=== PATIENT | male | born 1955 | race Caucasian/White ===

== ENCOUNTER → 2019-11-19 10:54 | Outpatient (CLI) | payer MEDICARE, SELFPAY ==
[2019-11-19 09:50] VITALS: BMI 34.9
--- NOTE | 2019-11-19 10:57 | VDLE_ITS ---
Reason For Study: swelling RIGHT LEFT GSV is normal. GSV is normal. CFV is compressible, spontaneous, phasic, CFV is compressible, spontaneous, phasic, competent and demonstrates normal competent, and demonstrates normal augmentation. augmentation. FV is compressible, spontaneous, phasic, FV is compressible, spontaneous, phasic, competent and demonstrates normal competent and demonstrates normal augmentation. augmentation. POP V is compressible, spontaneous, phasic, POP V is compressible, spontaneous, phasic, competent and demonstrates normal competent and demonstrates normal augmentation. augmentation. T/P Trunk is compressible. T/P Trunk is compressible. PTV is compressible. PTV is compressible. RT PerV is compressible. LT PerV is compressible. Procedure Heterogeneous area behind the knee measuring Exam performed in department. 3.37 x 1.5 cm in short. Area appears to be The exam was diagnostic. nonvascular. A preliminary report was called and/or faxed Heterogeneous area in the gastroc muscle. Are to Dr. Whiteside. is too lasrge to measure. Area appears to be nonvascular. Interpretation Summary No evidence for acute deep venous thrombosis bilateral lower extremities with patent and compressible bilateral great saphenous veins. Heterogenous area 3.37 x 1.5 cm left popliteal space most consistent with Car's cyst with hemorrhage. Clinical correlation would be indicated. Separate area left gastrocnemius muscle too large to measure nonvascular complex solid/cystic. Clinical correlation appropriate. Ordering Physician: Asha Whitesied Performed By: Cordell Ojeda RVT
[2019-11-19 12:21] LABS: Pathologist Comment May follow
[2019-11-19 13:18] LABS: Synovial Fld Mononuclear WBC % 68.4 %; Synovial Fld Polynuclear WBC % 31.6 %
[2019-11-19 14:18] LABS: Lymph 25 %; Monocyte /Synovial Fluid 33 %; Neutrophil 42 % (0-25)
[2019-11-19 14:28] LABS: AUTO B FLUID DILUENT BKGD CT WBC <0.1 RBC <0.01 (W<.1,R<.01); Appearance /Synovial Fluid Clear (CLEAR); Color / Synovial Fluid Yellow (Pale Yellow); Source- Body Fluid SYNOVIAL
[2019-11-19 14:29] LABS: Body Fluid QC Type(s) BF1Q,BF2Q; RBC /Synovial Fluid 545 /mm3 (0)
[2019-11-20 10:40] LABS: Pathologist Review Reviewed
[2019-11-21 15:51] LABS: GLUCOSE, SYNOVIAL FLUID 83 mg/dL (.)
== END ==
PROVIDERS: Referring Provider Orthopaedic Surgery; Visit Provider Orthopaedic Surgery
DX: M25.462 Effusion, left knee (principal); R60.0 Localized edema
CPT/HCPCS: 82945; 84157; 87070; 87075; 87205; 89050; 89051; 89060; 93970

== ENCOUNTER 2019-12-13 12:30 | Outpatient (RCR) | payer MEDICARE, SELFPAY ==
[2019-11-19 09:50] VITALS: BMI 34.9
--- NOTE | 2019-11-26 10:44 | HP.PTEVAL ---
Patient's Visit Information MINA YOON is a 64 year old M referred to Physical Therapy by Dr. Asha Whiteside, with a diagnosis of LEFT KNEE EFFUSION,LEG SWELLING. Date of Evaluation: 11/26/19 Physical Therapist: Paul Lind, PT, Cert MDT, OCS - Visit Plan Frequency: 2x /Week Duration: 4 Weeks Plan: PT INTERVENTIONS VASO FOR EDEMA CONTROL,GRADED ROM ONLY - Subjective Findings: This 64 y/o male presents to physical therapy with left knee effusion ,leg swelling. Patient had left knee menisectomy athroscopy Aug 2019. Patient had PT which caused more pain progressivelly edema. Patient seen DR Whiteside reviewed and MRI showed insufficiency fracture of left femur,hematoma along with bakers cyst. Patient recommended to use crutches limited WB and PT for edema control. Patient had US to r/o DVT -.Patient has alot edema in leg. 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 Patient has h/o stents in heart x3,NM. Also ,refer to Dr Farnsworth for hematoma . Patient has limitation with all functtional activities ,stairs unable to squat, kneel. Symptoms affects sleeping. VOCATION: retired. SOCAIL: single - Pain Left Lower Extremity Pain Intensity (Out of 10): 9 Pain Intensity Range: 10 Left Knee Pain Intensity (Out of 10): 9 Pain Intensity Range: 10 - Objective POSTURE: mild foward posture. GAIT: ambulates with antalgic gait with limited WB crutches. BALANCE: good- with crutches. PALAPTION: tender CALF ,KNEE ,QUAD. EDEMA:2+ non pitted. MEASUREMENTS: joint line 50.1 cm,mid calf 43 cm ,6 above joint li ne 54 cm with jeans on. AROM: 30-90 degrees supine flexion. MMT: quads/hams /hip 3+/5 - Goals Goal 1:: Independant with ROM as melania. Goal Time Frame: 2-4 Weeks Goal 2:: Patient improve gait with less pain by 50% Goal Time Frame: 2-4 Weeks Goal 3:: Patient to decrease edema by 5cm or > to improve function left leg Goal Time Frame: 2-4 Weeks Goal 4:: Patient improve LFES SCORE by 5 points or > to improve QOL. Goal Time Frame: 2-4 Weeks Goal 5:: Improve ROM left knee by 10 degrees to improve gait. - Rehabilitation Potential Physical Therapy Diagnosis: This patient has multiple complexity issue with patient developing severe edema and pain following knee arthroscopic surgery thus has impairments with edema benifit from VASO. Rehabilitation Potential: Good - Anticipated Interventions Patient/Client Instruction: Educate patient on: Condition, Plan of Care For the Purpose of:: To decrease pain, To increase ROM, To improve muscle performance and motor function, To improve ability to perform ADL's, To increase tolerance to activity/condition/position, To improve ability of physical actions for home/community/work/leisure, To improve health of tissue, To decrease soft tissue restriction, To increase flexibility/ROM, To improve ability to perform tasks related to life management Therapeutic Exercise to Include: Passive ROM, Active ROM For the Purpose of:: To increase ROM TENS: Yes IF ES: Yes Cryotherapy (ice pack, ice massage): Yes Vasopneumatic device: Yes For the Purpose of:: To decrease pain, To decrease swelling/inflammation, To increase ROM, To improve nutrient delivery to tissue, To increase oxygenation perfusion, To improve health of tissue, To decrease soft tissue restriction, To increase flexibility/ROM Thank you for the opportunity to evaluate your patient. For Medicare and Medicare HMO plans, please review the plan of care and approve it. It will need to be FAXED BACK to us at [phone] for Medicare purposes. For Medicare only, by signing this I certify the plan of care. Please let me know if there are questions or concerns regarding this plan of care. Physician Signature: Date:
--- NOTE | 2020-06-11 10:17 | HP.PT.NRP ---
MINA YOON was seen in my office for initial evaluation on 11/26/19. The following Plan of Care was established for this patient: Initial Frequency: 2x /Week Initial Duration: 4 Weeks Patient/Client Instruction: Educate patient on: Condition, Plan of Care For the Purpose of:: To decrease pain, To increase ROM, To improve muscle performance and motor function, To improve ability to perform ADL's, To increase tolerance to activity/condition/position, To improve ability of physical actions for home/community/work/leisure, To improve health of tissue, To decrease soft tissue restriction, To increase flexibility/ROM, To improve ability to perform tasks related to life management Therapeutic Exercise to Include: Passive ROM, Active ROM For the Purpose of:: To increase ROM TENS: Yes IF ES: Yes Cryotherapy (ice pack, ice massage): Yes Vasopneumatic device: Yes For the Purpose of:: To decrease pain, To decrease swelling/inflammation, To increase ROM, To improve nutrient delivery to tissue, To increase oxygenation perfusion, To improve health of tissue, To decrease soft tissue restriction, To increase flexibility/ROM This patient was last seen in our office 12/16/19. Pertinent comments regarding their Physical therapy will appear below: Patient seen for PT for knee pain,swelling thus seen PT for vasopneumatic . Did get approval for home device. But vendor was unable to contact patient. At this point I will be discontinuing this patient from physical therapy. I would be happy to see this patient again in the future if found appropriate by the physician. Thank you! Paul Lind, PT, Cert MDT, OCS
== END 2019-12-13 19:00 | disposition home or self-care (01) ==
LOC: PT 12:30
PROVIDERS: Referring Provider Orthopaedic Surgery; Visit Provider Orthopaedic Surgery
DX: M25.462 Effusion, left knee (principal); M79.89 Other specified soft tissue disorders
CPT/HCPCS: 97016; 97162

== ENCOUNTER → 2020-02-21 13:32 | Outpatient (CLI) | payer MEDICARE, SELFPAY ==
[2019-12-31 10:13] VITALS: BMI 34.9
--- NOTE | 2020-02-21 13:32 | RAD_ITS ---
STUDY: X-RAY - LEFT KNEE REASON FOR EXAM: Male, 64 years old. CHRONIC KNEE PAIN TECHNIQUE: 4 view(s) of the knee. COMPARISON: None. FINDINGS: Findings suggestive of a osteochondritis dissecans of the medial femoral condyle. Normal visualized proximal tibia and fibula. Normal proximal tibiofibular articulation. There is severe degenerative arthrosis of the medial femorotibial compartment with severe joint space narrowing. Chondrocalcinosis of the lateral meniscus. Normal patellofemoral articulation. Moderate size joint effusion. Atherosclerotic calcification of the popliteal artery. RAD/Knee 4 or More Views IMPRESSION: Degenerative arthrosis. 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 Joint effusion. Moderate size joint effusion. Electronically Signed: Aris Mullen, at 14:33 EDT , Service support ,
== END ==
PROVIDERS: Referring Provider Physician Assistant; Visit Provider Physician Assistant
DX: M25.562 Pain in left knee (principal)
CPT/HCPCS: 73564

== ENCOUNTER → 2020-03-13 06:50 | Outpatient (CLI) | payer MEDICARE, SELFPAY ==
[2020-02-24 15:58] VITALS: BMI 34.9
--- NOTE | 2020-03-13 06:51 | CT_ITS ---
STUDY: CT SCAN LEFT LOWER EXTREMITY LEFT REASON FOR EXAM: Male, 64 years old. HILARIO KNEE, KNEE PAIN RADIATION DOSAGE (If Supplied By Facility): CTDIvol = ( 18.76 ) mGy, DLP = ( 1216.75 ) mGycm. Individualized dose optimization techniques were used for this CT.? TECHNIQUE: Multiple axial tomographic images of the left hip joint, knee joint and ankle joint were obtained. Sagittal and coronal reconstruction was obtained as well. COMPARISON: None. FINDINGS: There is a moderate degree of joint space narrowing of the left hip joint with a small acetabular spur. There is evidence of a dense calcific plaque in the left common iliac artery. This may be leading to some stenotic abnormality. The marked degree of joint space narrowing and subchondral geodes along the medial compartment of the knee joints involving the medial femoral condyle and medial tibial plateau. There is also evidence of calcification of the medial and lateral menisci in keeping with chondrocalcinosis. Mild degree of degenerative changes involving the patellofemoral joint. Moderate size joint effusion. Vascular calcification. Imaging of the ankle joint demonstrates no significant abnormality. CT/Extremity Lower without Contra IMPRESSION: Marked degree of joint space narrowing along the medial compartment of the knee joint with chondrocalcinosis and moderate joint effusion. Vascular calcification. Electronically Signed: Aris Mullen, at 9:07 EDT , Service support ,
== END ==
PROVIDERS: Referring Provider Orthopaedic Surgery; Visit Provider Orthopaedic Surgery
DX: M17.12 Unilateral primary osteoarthritis, left knee (principal)
CPT/HCPCS: 73700

== ENCOUNTER 2020-03-24 16:56 | Observation (INO) | payer MEDICARE, SELFPAY ==
[2020-02-24 15:58] VITALS: BMI 34.9
[2020-03-13 07:59] VITALS: BMI 34.9
--- NOTE | 2020-03-19 09:43 | EKG12_ITS ---
Test Reason : PRE-OP Blood Pressure : / mmHG Vent. Rate : 079 BPM Atrial Rate : 079 BPM P-R Int : 130 ms QRS Dur : 110 ms QT Int : 382 ms P-R-T Axes : 064 050 033 degrees QTc Int : 438 ms Normal sinus rhythm with sinus arrhythmia Normal ECG Confirmed by JEWEL WARD ([id number]), video editor ANGELITO ACUÑA ([id number]) on 03/26/2020 12:02:02 PM Referred By: Haseeb Elise Confirmed By:JEWEL WARD
[2020-03-19 10:05] LABS: Absolute Lymphocyte Count 0.96 X10^3/uL (0.83-4.51); Absolute Neutrophil Count 2.8 X10^3/uL (2.0-7.7); Basophil# 0.04 X10^3/uL; Basophil% 0.9 % (0-1); Eosinophil# 0.12 X10^3/uL; Eosinophils% 2.8 % (0-5); Hematocrit 44.7 % (40-54); Hemoglobin 14.7 g/dL (13.0-16.5); Lymphocyte # 0.96 X10^3/ul (4.0); Lymphocyte % 22.2 % (19-41); Mean Corp Hgb Conc 32.9 g/dL (32-36); Mean Corpuscular Volume 91.2 fL (80-94); Mean Platelet Vol. 10.6 fl (6.2-12.0); Monocyte# 0.42 X10^3/uL; Monocyte% 9.7 % (0-10); NRBC Flagged by Analyzer 0 % (0-5); Neutrophil # 2.76 X10^3/uL (2.7-7.7); Neutrophil % 63.9 % (47-70); Platelet Count 224 K/mm3 (150-450); RBC Distribution Width CV 12.9 % (11.6-14.6); RBC Distribution Width SD 42.4 fl (35.1-43.9); White Blood Count 4.3 K/mm3 (4.4-11.0)
[2020-03-19 10:19] LABS: Anion Gap 5 (5-15); BUN 13 mg/dL (7-18); BUN/Creat Ratio 12.6 RATIO (10-20); Calcium,Total 9.5 mg/dL (8.5-10.1); Chloride 106 mmol/L (98-107); Creatinine, Serum 1.03 mg/dL (0.70-1.30); EST Glomerular Filtration Rate 77 mL/min (>60); Est Glom Filt Rate - Afr Amer 94 mL/min (>60); Glucose 104 mg/dL (74-106); Potassium 4.2 mmol/L (3.5-5.1); Sodium Level 140 mmol/L (136-145)
[2020-03-19 10:36] LABS: Partial Thromboplast Time 31.6 Seconds (24.1-36.2)
[2020-03-19 10:47] LABS: International Normalized Ratio 1.1; Prothrombin Time (Protime)PT. 13.9 SECONDS (11.7-14.9)
[2020-03-24] VITALS (19 sets, daily range): BP systolic 95–135; BP diastolic 60–90; PULSE 56–97; RESP 16–18; TEMP 35.5–36.7; O2SAT 91–100; BMI 35.3
[2020-03-24] MEDS: Celecoxib 200 MG Capsule 400 MG PO (06:26)
[2020-03-24] MEDS: Gabapentin 600 MG Tablet PO (06:26)
[2020-03-24] MEDS: Scopolamine 1mg/72hr Patch 1 PATCH TRANSDERM. (06:27)
[2020-03-24] MEDS: Acetaminophen 500 MG Tablet 1000 MG PO ×2 (06:27→17:47)
[2020-03-24] MEDS: Lactated Ringers 1,000 ML 125 ML IV ×3 (06:48→18:57)
[2020-03-24 06:52] LABS: Magnesium 2.3 mg/dL (1.6-2.6)
[2020-03-24 07:00] LABS: Bedside Glucose 105 mg/dL (70-110)
[2020-03-24] MEDS: Cefazolin 2 GM in 0.9% Normal Saline 100 ML IV (07:29)
--- NOTE | 2020-03-24 07:39 | HP.PCM_ITS ---
History and Physical Date of Admission: 03/24/20 Intake Intake Visit Reasons: left knee Is patient in pain?: Yes Allergies No Known Allergies Allergy (Unverified 12/25/19 08:57) Medications aspirin 81 mg tablet,delayed release 81 mg PO DAILY 11/19/19 [History Confirmed 03/13/20] atorvastatin 20 mg tablet PO 11/19/19 [History Confirmed 03/13/20] celecoxib 200 mg capsule mg PO 11/19/19 [History Confirmed 03/13/20] esomeprazole magnesium 40 mg capsule,delayed release cap PO 11/19/19 [History Confirmed 03/13/20] gabapentin 300 mg capsule PO 11/19/19 [History Confirmed 03/13/20] gemfibrozil 600 mg tablet mg PO 11/19/19 [History Confirmed 03/13/20] metoprolol succinate 100 mg tablet,extended release 24 hr PO 11/19/19 [History Confirmed 03/13/20] montelukast 10 mg tablet mg PO 11/19/19 [History Confirmed 03/13/20] ranolazine 500 mg tablet,extended release,12 hr tab PO 11/19/19 [History Confirmed 03/13/20] PFS Social History (Updated 03/13/20 @ 10:[address] Haseeb Elise, ) Smoking Status: Former smoker alcohol intake: never substance use type: does not use additional social history: DOES TAKE ASPIRIN DOES TAKE IBUPROFEN HPI left knee: Details: Parts of this documentation were recorded by a scribe, this documentation accurately reflects the service provided and the decisions made by me, Dr. Haseeb Elise DO 03/13/20 [id number]. MINA YOON is a 64 year old M here today for continued left knee pain and for his Iovera treatment for his upcoming knee replacement. Denies numbness, tingling or other associated symptoms. He has pain throughout the knee that increases with activity. ROS Musc Reports as per HPI, Reports joint pain Skin/Breast Reports as per HPI Neuro Yes as per HPI Ortho Exam Left Knee Skin/Wound: No ecchymosis, No erythema, Yes swelling Homans Sign: No 2+: Effusion Knee ROM: Yes ROM-Extension -20 to 0, No ROM-Flexion 0-140 Examination: Yes med jt line tenderness, No Lat jt line tenderness Stability: NML: Anterior Drawer, NML: Posterior Drawer, NML: Valgus 30, NML: Varus 30 Apprehension with Lateral Translation: No Patella Grind: Yes KNEE: BL pitting edema worse of the leftProximal third of leg brisk capillary refill 2/4 Dorsalis pedis 1 out of 4 posterior tibial Office Procedures Iovera Details:: Preoperative diagnosis :left knee pain Postoperative diagnosis: Same Procedure: Cryotherapy with Iovera device to anterior femoral cutaneous nerve and 2 branches of the infrapatellar saphenous nerve III nerves in total Description of procedure: Patient was brought back to the procedure room the operative extremity was identified by both patient and physician. The PIP flexion crease was measured to the midpoint of the patella and this distance was divided in 3 resulting in 10 cm location proximal to the midpoint of the pat raven. This line was extended medial and lateral to the extent of the edges of the patella. This was our treatment line for the anterior femoral cutaneous nerve. A second treatment line was made 5 cm medial to the inferior pole of the patella and 5 cm distally. The leg was prepped with alcohol and Betadine. Lidocaine with epi was used along the treatment lines. Using the Iovera device treatment lines were treated with 1 minute cycles. Reproduction of paresthesias was monitored in the area of nerve distribution. Once all 3 nerves were treated across the 2 treatment lines patient was cleaned and a light dressing with 4 x 4 and Ben wrap was applied. Patient tolerated the procedure without complication. Supplemental Info 2019 x-ray left knee advancedMedial compartment OA likely SONKMedial femoral condyle arterial sclerosis Assessment & Plan Problems 1. Chronic pain of left knee M25.562; G89.29 Plan Patient received the Iovera treatment x three nerves, Obtained consent for treatment. Under sterile conditions, treated the patients left knee with Iovera. The patient tolerated the treatment well without any noted complication. Patient should call our office if redness develops, pain worsens or if they have any concerns. Educted that he should stop the aspirin 7 days prior to surgery and he can resume this post op and he will be tested for COVID 5-6 days prior to surgery. Risks, benefits and alternatives of surgery reviewed including but not limited to bleeding, infection, nerve, artery and/or tissue damage, fracture, VTE, mechanical feel of the knee, continued pain, stiffness and expected post- operative course. once again reviewed risk of covid -19 exposure and potential complications. he understands and wishes to proceed with tka. Follow up post op or sooner if pain, swelling, numbness or associated symptoms, or concerns develop. All questions answered. Patient in agreement of plan. Orders Orders: Sully Today M25.569 Coding Level of Care Code Attention Yaritza Diagnoses Chronic pain of left knee M25.562; G89.29 ??Chronicity: chronic I have re-examined the patient. There are no clinical changes since date of exam Procedure Criteria Procedure Type: Elective COVID Risk Discussion: The surgeon/proceduralist and patient have discussed in detail the risk of exposure to and/or potential harm posed by the COVID-19 virus with having a surgery/procedure at this time versus the risk of delaying the surgery/procedure. It is not possible to know either the risk of delaying the surgery or procedure or chance of getting an infection with perfect accuracy, but a joint decision was made between the patient and the surgeon/proceduralist to proceed at this time with the scheduled surgery/procedure as indicated on the consent form.
--- NOTE | 2020-03-24 07:40 | DCINST_ITS ---
Discharge Diet: No Restrictions Weight Bearing Status: Weight bearing as tolerated Call your doctor if you observe: Shortness of breath, Chest pain Additional Instructions: Ice and elevate one week while not ambulating. Ambulation is encouraged. Weightbearing as tolerated. Use assistive devise for stability. Encourage FULL knee extension and flexion 1 time EVERY time you get up and down and MULTIPLE times per day. No showering 72 hours after surgery. Begin showering postop day #3. Remove the dressing prior to shower and gently wash with warm water and antibacterial soap then pat dry and place abdominal pad (or plain gauze) and AUGUSTINE hose over top. This is to be done daily. Do not submerge for 3 weeks. If not showering daily after the initial 72 hours then you must clean incision and change dressing daily. Do not allow animals near the incision area. Keep clean. Follow anticoagulation recommendations as prescribed. Do not take any NSAIDs while on blood thinner. Do not take any additional narcotic pain medication other than what was perscribed on you surgery day without discussing with physician. Start physical therapy. If you are not currently scheduled for physical therapy or you are unsure of appointment time please call office [facility] to arrange. Call Dr. Elise with any concerns. Allergies/Adverse Reactions: Allergies No Known Allergies Allergy (Unverified 03/17/20 09:54) Medications to take at Discharge aspirin 81 mg tablet,delayed release 81 mg PO DAILY 11/19/19 atorvastatin 20 mg tablet 20 mg PO DAILY 11/19/19 celecoxib 200 mg capsule 200 mg PO DAILY 11/19/19 esomeprazole magnesium 40 mg capsule,delayed release 40 cap PO DAILY 11/19/19 gabapentin 300 mg capsule 300 mg PO DAILY 11/19/19 gemfibrozil 600 mg tablet 600 mg PO DAILY 11/19/19 montelukast 10 mg tablet 10 mg PO DAILY 11/19/19 ranolazine 500 mg tablet,extended release,12 hr 500 tab PO BID 11/19/19 Albuterol Inhaler [Ventolin Hfa] 1 puff INHALATION Q4H PRN PRN 03/17/20 Ferrous Sulfate 325 mg PO DAILY@0800 03/17/20 Metoprolol(XL)Succ [Toprol Xl (Beta Jazlyn)] 100 mg PO DAILY 03/17/20 Tiotropium [place] [Spiriva 18 MCG] 2 puff INHALATION DAILY 03/17/20 Acetaminophen [Tylenol Extra Strength] 1,000 mg PO Q6H PRN #100 tab 03/24/20 Acetaminophen [Tylenol Extra Strength] 1,000 mg PO Q6H PRN #100 tab 03/24/20 Apixaban [Eliquis] 2.5 mg PO BID #30 tab 03/24/20 Apixaban [Eliquis] 2.5 mg PO BID #30 tab 03/24/20 Cephalexin [Keflex] 1,000 mg PO Q8 #4 cap 03/24/20 Cephalexin [Keflex] 1,000 mg PO Q8 #4 cap 03/24/20 Ondansetron HCl [Zofran] 4 mg PO Q6H PRN PRN 5 Days #20 tab 03/24/20 Ondansetron HCl [Zofran] 4 mg PO Q6H PRN PRN 5 Days #20 tab 03/24/20 Oxycodone [Oxyir] 5 mg PO Q4H PRN PRN #60 tab 03/24/20 Oxycodone [Oxyir] 5 mg PO Q4H PRN PRN #60 tablet 03/24/20 The following prescriptions were given: Apixaban [Eliquis] 2.5 mg PO BID #30 tab Transmission Status: Received by [facility] Apixaban [Eliquis] 2.5 mg PO BID #30 tab Transmission Status: Pending to [facility] Cephalexin [Keflex] 1,000 mg PO Q8 #4 cap Transmission Status: Received by [facility] Cephalexin [Keflex] 1,000 mg PO Q8 #4 cap Transmission Status: Pending to [facility] Oxycodone [Oxyir] 5 mg PO Q4H PRN PRN #60 tab PRN Reason: Pain Score 6-10/10 Transmission Status: Received by [facility] Oxycodone [Oxyir] 5 mg PO Q4H PRN PRN #60 tablet PRN Reason: Pain Score 6-10/10 Transmission Status: Sent to [facility] Acetaminophen [Tylenol Extra Strength] 1,000 mg PO Q6H PRN #100 tab Transmission Status: Received by [facility] Acetaminophen [Tylenol Extra Strength] 1,000 mg PO Q6H PRN #100 tab Transmission Status: Pending to [facility] Ondansetron HCl [Zofran] 4 mg PO Q6H PRN PRN 5 Days #20 tab PRN Reason: Nausea Transmission Status: Received by [facility] Ondansetron HCl [Zofran] 4 mg PO Q6H PRN PRN 5 Days #20 tab PRN Reason: Nausea Transmission Status: Pending to [facility] Primary Care Physician: SHAMIKA YEPEZ [Other] Test Results: Test results from this visit will be discussed in further detail at your follow- up appointment, if applicable. Please Follow Up With: Haseeb Elise DO - 2 week
[2020-03-24] MEDS: Betamethasone/Betamethasone 30 MG/5 ML Vial (09:00)
[2020-03-24] MEDS: Bupivacaine Mpf 0.5% 30 ML VIAL (09:00)
--- NOTE | 2020-03-24 09:37 | OP.PCM_ITS ---
Report of Operation Date of Procedure: 03/24/20 Description of Surgical Findings:: Preoperative diagnosis: Left knee DJD Postoperative diagnosis: Same Procedure: Left total knee arthroplasty CT guided Robotic Assisted Implant: Sebas triathlon press fit femoral component size 5, press-fit tibial baseplate size 6, press fit asymmetric patella size 35, polyethylene X3 size 9 CS Anesthesia: General with adductor canal block Tourniquet time: 12 minutes at 300 mmHg Complications: None Condition: Stable to PACU Estimated blood loss: 200 cc Indication for procedure: This is a 64-year-old male with long standing degenerative joint disease of the knee who has failed conservative treatment and wished to proceed with elective total knee arthroplasty. Risk benefits and alternatives were reviewed including; risk of bleeding, infection, nerve artery and tissue damage, continued pain, postoperative stiffness, venous thromboembolism, need for postoperative rehabilitation, mechanical feel to the knee, and expected postoperative course. The operative CT and templating was performed with component sizing Procedure: The patient was met in the preoperative holding area. The operative extremity was identified by both patient and physician and was marked. Patient was met by anesthesia. An adductor canal block was placed by anesthesia postoperatively the patient was brought back to the operating room on a wheeled cart and transferred to the operating table in the supine position. Anesthesia was started. A well-padded tourniquet was placed on the operative extremity. The patient was prepped and draped in the usual sterile fashion. A timeout was called to ensure the proper patient procedure and extremity were being contemplated. An Esmarch was used to exsanguinate the extremity. The tourniquet was inflated. A 10 blade scalpel was used to make a midline incision down through the skin and subcutaneous tissue. Skin retractors placed. Bovie was used to perform meticulous hemostasis. full-thickness flaps were elevated medial and lateral along the joint capsule. A deep blade scalpel was used to perform a medial parapatellar arthrotomy. The knee was brought to full extension. A Bovie was used to release the soft tissues off the most proximal aspect of the medial tibial plateau a three-quarter inch curved osteotome was also used for this process. The infrapatellar fat pad was excised. The fat pad was excised partially anterior lateral portion the anterior medial was elevated from the femur. At this point our intra-articular femoral array was placed of a 45 degree angle proximal and posterior to the medial epicondyle. Our tibial array was placed greater than 1 hands breath below the incision at a 20 degree angle stab incisions were used for this case were attached and checked with the robotic software. Tourniquet was let down. At this point registration spaulding were taken throughout the knee as well as checkpoints placed in the femur and tibia once the knee was registered then tensioned the medial and lateral ligaments in extension and 90 degrees of flexion. We then used these numbers to adjust our components within parameters to balance the knee in both flexion and extension once this was done on our monitor we then proceeded with using the robotic arm to make our tibial plateau cut and anterior posterior and chamfer cuts on the femur we then trialed and achieved the desired plan with a well- balanced knee. Lug holes were drilled in the femur the tibia preparation was completed with a fin punch and the patella was prepared by first using a caliper to ensure sufficient bone stock and a patellar reamer to remove the desired amount of bone locals were drilled for an asymmetric poly-. We then brought the knee through range of motion with excellent patellar tracking. We thoroughly irrigated the knee with a trial components were removed a posterior capsular injection with her standard cocktail was performed the aqua Mantis was also used to aid in hemostasis. Betadine rinse was allowed to sit and washed out components were press-fit into place. Aricept rinse was then used followed by several more rate liters of irrigation after it was allowed to sit. Joint capsule was closed with #1 Ethibond [id number] followed by Vicryl in the subcutaneous tissues staple in the skin arrays and checkpoints were removed prior to closure all counts were correct stab incisions were closed with a stable standard dressing in the form of Mepilex for the main incision Xeroform 4 x 4 and Tegaderm over pin site holes. Thigh-high AUGUSTINE hose applied over top of dressing. Patient tolerated the procedure well and was directed to PACU in stable condition no intraoperative complications
--- NOTE | 2020-03-24 09:50 | RAD_ITS ---
STUDY: X-RAY - LEFT KNEE REASON FOR EXAM: Male, 64 years old. POST OP LEFT KNEE TECHNIQUE: 2 view(s) of the knee. COMPARISON: Prior study of 02/21/2020 FINDINGS: Status post total left knee replacement changes are noted with implants appearing in good position. There is no evidence of implant loosening or associated fracture or dislocation. Skin delbert are seen anteriorly. RAD/Knee 1 or 2 Views IMPRESSION: Status post total left knee replacement changes noted with implants appearing in good position. Electronically Signed: Ambrosio Moore MD at 16:03 EDT , Service support ,
[2020-03-24] MEDS: Ondansetron 4 MG/2 ML Vial IV (14:09)
--- NOTE | 2020-03-24 14:28 | SUR.PHASEII ---
1400 pt attempt to walk. pt became nauseous. returned to bed. will medicate per order.
--- NOTE | 2020-03-24 14:29 | SUR.PHASEII ---
1429 pt sleeping. o2 applied via n/c at 2lpm due to spo2 86%.
[2020-03-24] MEDS: Cefazolin 1 GM/50 ML BAG IV ×2 (16:08→22:11)
--- NOTE | 2020-03-24 16:11 | SUR.PHASEII ---
1600 pt walked with PT.
--- NOTE | 2020-03-24 17:02 | SUR.PHASEII ---
pt unable to void. pt also weak and unstable with ambulation. notified dr. hammond. new orders received. pt going to stay over night. pt and family agreeable.
[2020-03-24] MEDS: Tamsulosin HCl 0.4 MG Capsule PO (17:17)
[2020-03-25 02:38] VITALS: BP 114/79; PULSE 101; RESP 18; TEMP 36.9; O2SAT 97
[2020-03-25] MEDS: Acetaminophen 500 MG Tablet 1000 MG PO (05:47)
[2020-03-25] MEDS: Cefazolin 1 GM/50 ML BAG IV (05:47)
[2020-03-25 05:51] VITALS: BP 111/69; PULSE 76; RESP 18; TEMP 36.9; O2SAT 94
--- NOTE | 2020-03-25 07:10 | DS.PCM_ITS ---
Discharge Date and Diagnosis Date of Admission: 03/24/20 Date of Discharge: 03/25/20 - Secondary Discharge Diagnosis Chronic Problems: Chronic Problems (Last Reviewed 12/27/19 @ 13:[address] Paul Farnsworth MD) Hematoma of left lower extremity (Chronic) from ruptured Car's cyst with bleeding component History of surgical removal of meniscus of knee (Chronic) Lymphedema of left leg (Chronic) Car's cyst, ruptured (Chronic) Hospital Course and Treatment Summary of Care Provided: The patient is a 64 year old M underwent total knee arthroplasty without complication was originaly set up to be discharged home however was unable to void p.o was straight cathed and given flomax and admitted for observation. he was able to void overnight without other problems he will be discharged home and follow up as previously scheduled. - Physical Exam Vitals/I&O's: Vital Signs Temp Pulse Resp BP Pulse Ox 98.5 F 76 18 111/69 94 03/25/20 05:51 03/25/20 05:51 03/25/20 05:51 03/25/20 05:51 03/25/20 05:51 Oxygen Flow Rate (L/min) 2 Oxygen Delivery Method Room Air Weight: 232 lb 5.875 oz Body Mass Index (BMI) 35.3 Intake and Output for Last 24 Hours 03/23/20 03/24/20 03/25/20 23:59 23:59 23:59 Intake Total 2971.42 / 2971.42 614.58 / 614.58 Output Total 825 / 825 1600 / 1600 Balance 2146.42 / 2146.42 -985.42 / -985.42 General: Alert, Oriented x3, Cooperative, No apparent distress Extremities: - - dressings clean dry and intact. NVI compartmenst soft. Current Medications Acetaminophen (Tylenol) 1,000 mg PO Q8 [facility] Last Admin: 03/25/20 05:47 Dose: 1,000 mg Documented by: Apixaban (Eliquis) 2.5 mg PO BID [facility] Hydromorphone HCl (Dilaudid Inj) 0.5 mg IV Q2H PRN PRN PRN Reason: Pain Score 6-10/10 Cefazolin Sodium () 1 gm in 50 mls @ 100 mls/hr IV Q8 [facility] Last Infusion: 03/25/20 06:23 Dose: Infused Documented by: Sodium Chloride () 250 mls @ 15 mls/hr IV .[id number] PRN PRN Reason: Saline Flush Sodium Chloride () 250 mls @ 15 mls/hr IV .[id number] PRN PRN Reason: Additional IVPB Infusion Insulin Human Lispro (Humalog Kwikpen ([facility])) 1 - 6 unit SC Q4H PRN PRN; Protocol PRN Reason: BG>/= 180, SEE PROTOCOL Ketorolac Tromethamine (Toradol ([facility])) 15 mg IV X1 PRN PRN Reason: Pain Score 4-10/10 Stop: 03/29/20 09:28 Ondansetron HCl (Zofran) 4 mg IV Q6H PRN PRN PRN Reason: NAUSEA Last Admin: 03/24/20 14:09 Dose: 4 mg Documented by: Oxycodone HCl (Oxyir) 5 - 10 mg PO Q4H PRN PRN PRN Reason: Pain Score 4-10/10 Sodium Chloride () 5 - 15 ml IV UD PRN PRN Reason: SALINE FLUSH Sodium Chloride () 10 - 40 ml IV UD PRN PRN Reason: SALINE FLUSH Tamsulosin HCl (Flomax) 0.4 mg PO DAILY@1730 [facility] Last Admin: 03/24/20 17:17 Dose: 0.4 mg Documented by: Discharge Diet: No Restrictions Weight Bearing Status: Weight bearing as tolerated Call your doctor if you observe: Shortness of breath, Chest pain Home Medications: Medications to take at Discharge aspirin 81 mg tablet,delayed release 81 mg PO DAILY 11/19/19 atorvastatin 20 mg tablet 20 mg PO DAILY 11/19/19 celecoxib 200 mg capsule 200 mg PO DAILY 11/19/19 esomeprazole magnesium 40 mg capsule,delayed release 40 cap PO DAILY 11/19/19 gabapentin 300 mg capsule 300 mg PO DAILY 11/19/19 gemfibrozil 600 mg tablet 600 mg PO DAILY 11/19/19 montelukast 10 mg tablet 10 mg PO DAILY 11/19/19 ranolazine 500 mg tablet,extended release,12 hr 500 tab PO BID 11/19/19 Albuterol Inhaler [Ventolin Hfa] 1 puff INHALATION Q4H PRN PRN 03/17/20 Ferrous Sulfate 325 mg PO DAILY@0800 03/17/20 Metoprolol(XL)Succ [Toprol Xl (Beta Jazlyn)] 100 mg PO DAILY 03/17/20 Tiotropium Sheridan [Spiriva 18 MCG] 2 puff INHALATION DAILY 03/17/20 Acetaminophen [Tylenol Extra Strength] 1,000 mg PO Q6H PRN #100 tab 03/24/20 Acetaminophen [Tylenol Extra Strength] 1,000 mg PO Q6H PRN #100 tab 03/24/20 Apixaban [Eliquis] 2.5 mg PO BID #30 tab 03/24/20 Apixaban [Eliquis] 2.5 mg PO BID #30 tab 03/24/20 Cephalexin [Keflex] 1,000 mg PO Q8 #4 cap 03/24/20 Cephalexin [Keflex] 1,000 mg PO Q8 #4 cap 03/24/20 Ondansetron HCl [Zofran] 4 mg PO Q6H PRN PRN 5 Days #20 tab 03/24/20 Ondansetron HCl [Zofran] 4 mg PO Q6H PRN PRN 5 Days #20 tab 03/24/20 Oxycodone [Oxyir] 5 mg PO Q4H PRN PRN #60 tab 03/24/20 Oxycodone [Oxyir] 5 mg PO Q4H PRN PRN #60 tab 03/24/20 Following Prescrptions Were Given to Patient: Apixaban [Eliquis] 2.5 mg PO BID #30 tab Transmission Status: Received by [facility] Apixaban [Eliquis] 2.5 mg PO BID #30 tab Transmission Status: Received by [facility] Cephalexin [Keflex] 1,000 mg PO Q8 #4 cap Transmission Status: Received by [facility] Cephalexin [Keflex] 1,000 mg PO Q8 #4 cap Transmission Status: Received by [facility] Oxycodone [Oxyir] 5 mg PO Q4H PRN PRN #60 tab PRN Reason: Pain Score 6-10/10 Transmission Status: Received by [facility] Oxycodone [Oxyir] 5 mg PO Q4H PRN PRN #60 tab PRN Reason: Pain Score 6-10/10 Transmission Status: Received by [facility] Acetaminophen [Tylenol Extra Strength] 1,000 mg PO Q6H PRN #100 tab Transmission Status: Received by [facility] Acetaminophen [Tylenol Extra Strength] 1,000 mg PO Q6H PRN #100 tab Transmission Status: Received by [facility] Ondansetron HCl [Zofran] 4 mg PO Q6H PRN PRN 5 Days #20 tab PRN Reason: Nausea Transmission Status: Received by [facility] Ondansetron HCl [Zofran] 4 mg PO Q6H PRN PRN 5 Days #20 tab PRN Reason: Nausea Transmission Status: Received by [facility] Primary Care Physician: SHAMIKA YEPEZ [Other] Please Follow Up With: Haseeb Elise, - 2 week Additional Instructions: Ice and elevate one week while not ambulating. Ambulation is encouraged. Weightbearing as tolerated. Use assistive devise for stability. Encourage FULL knee extension and flexion 1 time EVERY time you get up and down and MULTIPLE times per day. No showering 72 hours after surgery. Begin showering postop day #3. Remove the dressing prior to shower and gently wash with warm water and antibacterial soap then pat dry and place abdominal pad (or plain gauze) and AUGUSTINE hose over top. This is to be done daily. Do not submerge for 3 weeks. If not showering daily after the initial 72 hours then you must clean incision and change dressing daily. Do not allow animals near the incision area. Keep clean. Follow anticoagulation recommendations as prescribed. Do not take any NSAIDs while on blood thinner. Do not take any additional narcotic pain medication other than what was perscribed on you surgery day without discussing with physician. Start physical therapy. If you are not currently scheduled for physical therapy or you are unsure of appointment time please call office [facility] to arrange. Call Dr. Elise with any concerns. Medical Necessity - Tobacco Use Smoking Status: Former smoker Tobacco Use: Non-smoker Meaningful Use Info Meaningful Use Diagnoses (Choose all that apply): None applicable
[2020-03-25 08:22] VITALS: BP 116/75; PULSE 97; RESP 16; TEMP 36.9; O2SAT 99
--- NOTE | 2020-03-25 09:40 | CASEMGMT ---
KACEY DUNN Face to Face with patient for initial transition planning/care coordination assessment. RN CM introduced self and role at [facility]. Patient sitting in chair, alert and oriented. Patient willing to participate in assessment and is able to answer all questions appropriately. Care providers, pharmacy, and demographics verified. Patient wishes to discharge home, and is setup for outpatient therapy at [facility]. Patient states he has no further needs or concerns at this time. CM to follow for discharge planning needs that may arise. PCP: Magdalene Baltazar Specialists: Daniel unix administrator Preferred Pharmacy: [facility] Insurance: [facility] Prescription Benefit: Yes Living Will/HPOA: yes, both daughters Sofia Watson and Jacqueline Teresa LNOK: daughters Living Arrangements: Patient lives with 2 grandchildren 21yo and 12 yo in single story home with 1 step to enter the home. Patient was independent at home prior to discharge. Transportation: daughters DME/HHC: Patient states he has walker, shower chair, and grab bar at home. Patient is setup with [facility] for outpatient therapy for tomorrow. Disposition Plan: Patient to discharge home with outpatient therapy, family support, and follow-up plans in place. Neetu YUAN, RN, CM
[2020-03-25] MEDS: APIXABAN 2.5 MG TABLET PO (10:27)
[2020-03-25 13:36] VITALS: BP 141/81; PULSE 115; RESP 16; TEMP 37.2; O2SAT 99
== END 2020-03-25 14:23 | disposition home or self-care (01) ==
LOC: MS3 03-25 08:41 → SDC 03-25 09:16 → MS3 03-25 09:16
PROVIDERS: Anesthesiology; Admitting Provider Orthopaedic Surgery; Referring Provider Orthopaedic Surgery; Visit Provider Orthopaedic Surgery
PROC: 0SRD0JZ Replacement of Left Knee Joint with Synthetic Substitute, Open Approach (ICD-10-PCS; CPT 27447; principal; 2020-03-24 07:15)
DX: M17.12 Unilateral primary osteoarthritis, left knee (principal); G89.29 Other chronic pain; I49.8 Other specified cardiac arrhythmias; I10 Essential (primary) hypertension; I25.10 Atherosclerotic heart disease of native coronary artery without angina pectoris; J44.9 Chronic obstructive pulmonary disease, unspecified; K21.9 Gastro-esophageal reflux disease without esophagitis; D64.9 Anemia, unspecified; E78.00 Pure hypercholesterolemia, unspecified; Z79.899 Other long term (current) drug therapy; Z79.82 Long term (current) use of aspirin; Z87.891 Personal history of nicotine dependence; Z95.5 Presence of coronary angioplasty implant and graft; R60.0 Localized edema; I45.10 Unspecified right bundle-branch block
CPT/HCPCS: 01400; 27447; 64447; S2900; 36415; 73560; 80048; 82962; 83735; 85025; 85610; 85730; 86850; 86900; 86901; 87081; 87635; 93005; 96361; 96365; 96366; 97110; 97116; 97162; 97166; 97530; 97535; 99218; 99251; C1776; G2023; J7120; G0378; G0379; G0463; J0702; J2405; U0003

== ENCOUNTER 2020-04-21 13:38 | Emergency (ER) | payer MEDICARE, SELFPAY ==
[2020-04-06 07:56] VITALS: BMI 35.3
[2020-04-21 13:39] VITALS: BP 156/90; PULSE 80; RESP 16; TEMP 36.7; O2SAT 98; BMI 34.9
[2020-04-21] MEDS: Naproxen 500 MG Tablet PO (14:27)
--- NOTE | 2020-04-21 14:30 | RAD_ITS ---
STUDY: X-RAY - LEFT KNEE REASON FOR EXAM: Male, 64 years old. Left knee pain, severe pain when bending, patient had knee replaced March 24 2020 TECHNIQUE: 4 view(s) of the knee. COMPARISON: Comparison is made with prior study dated 03-24-20. FINDINGS: Normal visualized distal femur. Normal visualized proximal tibia and fibula. Normal proximal tibiofibular articulation. The patient is status post left total knee replacement. There is good alignment. Persistent joint effusion and soft tissue swelling. There are atherosclerotic calcifications. RAD/Knee 4 or More Views IMPRESSION: Status post left total knee replacement. Persistent joint effusion and soft tissue swelling. Electronically Signed: Aris Mullen, at 14:48 EDT , Service support ,
--- NOTE | 2020-04-21 14:40 | ED.DCSUM_ITS ---
History of Present Illness Chief Complaint: Lower Extremity Injury Detail of Chief Complaint: Knee pain using physical therapy exercise bike Informant: Patient Occurred: Today, Hours Mechanism/Context: Fall - Dates he had a fall exiting the orthopedist office 2 weeks ago. He did not inform the orthopedist of this. Onset: Today - Severe pain using exercise bike today, Weeks - Pain status post fall 2 weeks ago. Quality of Pain: Dull, Aching Location: Left anterior knee Current Severity: Moderate Maximum Severity: Severe Worsened by: Use of exercise bike and fall 2 weeks ago Relieved by: Nothing Associated Symptoms: Negative for: Parasthesia, Weakness, Loss of Funtion Narrative: Patient is 64-year-old male who presents with left knee pain that is exquisite and severe after using exercise bicycle at physical therapy. He states he had a fall 2 weeks ago. Did not make his orthopedist aware. He states he had severe pain and was unable to get off the bicycle for 10 minutes. He denies paresthesia, anesthesia motors. He states there is no increased swelling redness or warmth. He localizes the pain to the entire left knee. He denies chest pain or shortness of breath. He is not on anticoagulant. He denies fever, chills or night sweats Prior similar symptoms: No Recent Illness/Hospitalization: Yes Past Medical History - Allergies and Home Meds Allergies/Adverse Reactions: Allergies No Known Allergies Allergy (Unverified 03/17/20 09:54) Primary Care Physician: SHAMIKA YEPEZ [Other] Surgical History: - - Left total knee arthroplasty March 24, 2020 Lives: Alone Smoking Status: Never smoker Alcohol: None Drugs: None Review of Systems General: Denies: Chills, Fever, Malaise, Subjective, Sweats Cardiovascular: Denies: Chest pain, Palpitations Respiratory: Denies: Dyspnea, Dyspnea on exertion Gastrointestinal: Denies: Nausea, Vomiting Musculoskeletal: Reports: Swelling, Extremity Pain. Denies: Myalgias, Arthralgias, Neck pain, Back pain Skin: Denies: Rash, Wounds Neurological: Denies: Weakness, Parasthesia, Numbness Hematologic: Denies: Easy bruising, Easy bleeding Physical Exam Vital Signs/Narrative: Vital Signs Temp Pulse Resp BP Pulse Ox 04/21/20 13:39 98.1 F 80 16 156/90 H 98 Inital Vital Signs reviewed: Yes General: Well nourished, Well developed, Obese Head: Normocephalic, Atraumatic Eyes: Perrl, EOMI. Negative for: Pale conjunctiva, Scleral icterus Cardiovascular: Regular rate, Regular rhythm Respiratory: No distress Abdomen: Rovsig's sign Back: Nontender. Negative for: CVA Tenderness - Right, CVA Tenderness - Left Skin: Normal color, No rash, - - Right erythema to the knee anteriorly. Patient states this is unchanged from date of surgery. Neurological: Alert, Oriented x3, Cranial nerves II-XII grossly intact, Normal Strength, Normal Sensation. Negative for: Normal Gait Psychological: Normal affect Diagnostic/Tx/Re-eval Chest X-Ray - ED: Read by ED Physician, - - 4 view x-ray of the knee was pe rformed. There is calcification of the arterial system. There is an effusion noted. The hardware is in place. There is no bony abnormality noted. The effusion may be due to postoperative change or possibly due to fall 2 weeks ago. 04/21/20 14:30 Knee 4 or More Views [RAD] Stat - Medical Decision Making Extremity exam the left knee is swollen compared to the right. There is a well- healed incision without evidence infection. Extension and flexion are limited. There is no palpable cords, leg vein distention or tenderness on the distribution deep venous system. DP and PT pulse are palpable. No laxity with varus valgus stress testing. X-ray was obtained since patient states he was sent for an x-ray. Did not receive call from orthopedist. With history of fall 2 weeks ago will obtain x- ray to determine if any significant injury occurred at that time. Suspect this is pain related to his total knee arthroplasty. IV Toradol was ordered, which patient declined. Patient was given option of IV medication or p.o. He chose p.o. After patient returned there was no laxatives Henning stress testing. He is able to extend to 180 degrees and flex to 95 degrees. There is no joint line tenderness. Plan is to discharge to home with appropriate home-going instructions ED Disposition - Plan for ED Patient: Disposition: Home or Assisted Living Diagnosis: Postoperative pain of left knee, Fall with injury Instructions: ED Wound Check Post Op Pain Referrals: SHAMIKA YEPEZ [Other] Haseeb Elise DO [STAFF PHYSICIAN] - As Needed
== END 2020-04-21 15:28 | disposition home or self-care (01) ==
PROVIDERS: Emergency Provider Emergency Medicine
DX: G89.18 Other acute postprocedural pain (principal); E66.9 Obesity, unspecified; W19.XXXA Unspecified fall, initial encounter
CPT/HCPCS: 73564; 99283; A4216

== ENCOUNTER → 2021-04-01 07:36 | Outpatient (CLI) | payer MEDICARE, SELFPAY ==
[2020-05-20 09:21] VITALS: BMI 34.9
--- NOTE | 2021-04-01 07:41 | MRI_ITS ---
STUDY: MRI LUMBAR SPINE WITHOUT CONTRAST REASON FOR EXAM: Male, 65 years old. pain, right leg pain, hx 3 prior surgeries- most recent 20yrs ago TECHNIQUE: Standardized fat and water weighted pulse sequences were obtained in the sagittal and axial planes. COMPARISON: None FINDINGS: T12-L1: Normal endplates. Normal disc height, hydration and morphology. Normal bilateral facet joints. Normal central canal and bilateral lateral recesses. Normal bilateral intervertebral neural foramina. Normal lumbar lordosis. There is no substantial scoliosis. Normal conus medullaris that terminates at the L1. L1-2: Mild bilobed disc protrusion with a large superiorly extending left paracentral disc extrusion produces moderate spinal stenosis and mild bilateral neural foraminal stenosis. L2-3: Normal endplates. Normal disc height, hydration and morphology. Normal bilateral facet joints. Normal central canal and bilateral lateral recesses. Normal bilateral intervertebral neural foramina. L3-4: Mild bilateral facet hypertrophy with fluid in the facet joints consistent with instability and mild ligament flavum hypertrophy. 2 mm retrolisthesis of L3 on L4 with a mild bilobed disc protrusion produces moderate spinal stenosis with moderate bilateral recess stenosis with abutment of the L4 nerve roots and moderate bilateral neural foraminal stenosis. L4-5: Moderate bilateral facet hypertrophy and ligament flavum hypertrophy. 2 mm of anterolisthesis of L4 on L5 with a large broad disc protrusion produces severe spinal stenosis with moderate bilateral lateral recess stenosis with abutment of the L5 nerve roots bilaterally and moderate bilateral neural foraminal stenosis with abutment of the L4 nerve roots bilaterally. L5-S1: Status post discectomy, interbody fusion, posterior decompression, and transpedicular fixation with anatomic alignment and no spinal stenosis or neural foraminal stenosis. Normal visualized sacral ala. Normal visualized paraspinous soft tissue structures. MRI/Spine Lumbar (Routine) IMPRESSION: Postsurgical changes and degenerative disc disease as described above. Electronically Signed: Baldo Quintero MD at 9:15 EDT Tel , Service support ,
== END ==
PROVIDERS: PCP Nurse Practitioner Family; Referring Provider Orthopaedic Surgery; Visit Provider Orthopaedic Surgery
DX: M79.604 Pain in right leg (principal); M54.5 Low back pain
CPT/HCPCS: 72148

== ENCOUNTER → 2021-05-14 12:17 | Outpatient (CLI) | payer MEDICARE, SELFPAY ==
--- NOTE | 2021-05-14 14:32 | NEURO ---
NCS and/or EMG Patient Report Ordering Doctor: Haseeb Elise DATE OF SERVICE: 05/14/21 Indication: Bilateral leg numbness and cold sensations. Evaluate for peripheral neuropathy. Findings: Nerve conduction studies were performed in the right lower extremity. The right peroneal motor study recording the extensor digitorum brevis showed a reduced amplitude, normal distal latency and mildly slowed conduction velocity. No conduction block or focal slowing was present across the fibular neck. The right tibial motor study recording the abductor hallucis brevis showed a reduced amplitude, normal distal latency and mildly slowed conduction velocity. Right sural sensory response was absent. Right superficial peroneal sensory response was absent. Limited examination of the left lower extremity was completed for comparison purposes. Left superficial peroneal sensory response was absent. Needle EMG of the right lower extremity muscles was performed. Active denervation was present in distal muscles. Motor units were large amplitude and long duration in distal muscles. The vastus medialis was normal in morphology, activation, and recruitment pattern. Impression: This is an abnormal study. 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 Rajendra Talavera D.O.
== END ==
PROVIDERS: PCP Nurse Practitioner Family; Referring Provider Orthopaedic Surgery; Visit Provider Orthopaedic Surgery
DX: M43.16 Spondylolisthesis, lumbar region (principal)
CPT/HCPCS: 95885; 95909

== ENCOUNTER → 2021-05-18 15:47 | Outpatient (CLI) | payer MEDICARE, SELFPAY ==
--- NOTE | 2021-05-18 15:50 | CT_ITS ---
STUDY: RIGHT LOWER EXTREMITY CT SCAN REASON FOR EXAM: Male, 65 years old. templating for right TKA RADIATION DOSAGE (If Supplied By Facility): CTDIvol = ( 18.76 ) mGy, DLP = ( 1191.61 ) mGycm. Individualized dose optimization techniques were used for this CT.? TECHNIQUE: Axial multidetector CT scan of the right lower extremity. Coronal and sagittal reformatted images. COMPARISON: None. FINDINGS: No acute fracture, dislocation or cortical destruction. Hip: Mild right hip osteoarthritis. Visualized intra-abdominal/pelvic contents within normal limits. Small left fat-containing inguinal hernia. Knee: Right knee mild patellofemoral arthrosis, severe medial compartment arthrosis and minimal lateral compartment arthrosis. Right knee chondrocalcinosis. Right knee moderate volume joint effusion, popliteal cyst and soft tissue swelling. Vascular calcifications. Ankle: Right ankle minimal tibiotalar arthrosis with trace chondrocalcinosis. CT/Extremity Lower without Contra IMPRESSION: Right knee tricompartmental osteoarthritis predominating medially Right knee moderate volume joint effusion, popliteal cyst and soft tissue swelling Right hip and ankle mild osteoarthritis Electronically Signed: Irvin Higuera DO at 8:18 EDT Tel , Service support ,
== END ==
PROVIDERS: PCP Nurse Practitioner Family; Referring Provider Orthopaedic Surgery; Visit Provider Orthopaedic Surgery
DX: M17.11 Unilateral primary osteoarthritis, right knee (principal)
CPT/HCPCS: 73700

== ENCOUNTER 2021-05-25 06:54 | Day surgery (SDC) | payer MEDICARE, SELFPAY ==
[2021-04-19 10:28] VITALS: BMI 34.9
[2021-05-10 10:28] LABS: Absolute Lymphocyte Count 0.97 X10^3/uL (0.83-4.51); Absolute Neutrophil Count 3.5 X10^3/uL (2.0-7.7); Basophil# 0.04 X10^3/uL; Basophil% 0.8 % (0-1); Eosinophil# 0.29 X10^3/uL; Eosinophils% 5.5 % (0-5); Hemoglobin 13.1 g/dL (13.0-16.5); Lymphocyte # 0.97 X10^3/ul (0.83-4.51); Lymphocyte % 18.3 % (19-41); Mean Corp Hgb Conc 32.8 g/dL (32-36); Mean Corpuscular Volume 91.5 fL (80-94); Mean Platelet Vol. 10.5 fl (6.2-12.0); Monocyte# 0.47 X10^3/uL; Monocyte% 8.9 % (0-10); NRBC Flagged by Analyzer 0 % (0-5); Neutrophil # 3.48 X10^3/uL (2.7-7.7); Neutrophil % 65.7 % (47-70); Platelet Count 229 K/mm3 (150-450); RBC Distribution Width CV 13.2 % (11.6-14.6); RBC Distribution Width SD 43.8 fl (35.1-43.9); Red Blood Count 4.37 M/mm3 (4.6-6.2); White Blood Count 5.3 K/mm3 (4.4-11.0)
[2021-05-10 10:33] LABS: International Normalized Ratio 1.2; Prothrombin Time (Protime)PT. 14.3 SECONDS (11.7-14.9)
[2021-05-10 10:35] LABS: Partial Thromboplast Time 36.7 Seconds (24.1-36.2)
[2021-05-10 10:54] LABS: Anion Gap 4 (5-15); BUN 15 mg/dL (7-18); BUN/Creat Ratio 15.4 RATIO (10-20); Calcium,Total 9.4 mg/dL (8.5-10.1); Chloride 106 mmol/L (98-107); Creatinine, Serum 0.97 mg/dL (0.70-1.30); EST Glomerular Filtration Rate 83 mL/min (>60); Est Glom Filt Rate - Afr Amer 100 mL/min (>60); Glucose 105 mg/dL (74-106); Potassium 4.4 mmol/L (3.5-5.1); Sodium Level 138 mmol/L (136-145)
[2021-05-11 14:30] LABS: Magnesium 2.1 mg/dL (1.6-2.6)
[2021-05-12 11:32] LABS: Fructosamine 208 umol/L (0-285)
--- NOTE | 2021-05-14 12:25 | EKG12_ITS ---
Test Reason : PRE OP Blood Pressure : / mmHG Vent. Rate : 072 BPM Atrial Rate : 072 BPM P-R Int : 130 ms QRS Dur : 108 ms QT Int : 388 ms P-R-T Axes : 056 040 034 degrees QTc Int : 424 ms Normal sinus rhythm Normal ECG Confirmed by JAMES HAHN, BRIE ([id number]), department editor ANGELITO ACUÑA ([id number]) on 05/17/2021 1:10:19 PM Referred By: Haseeb Elise Confirmed By:BRIE RAMIREZ MD
[2021-05-25] VITALS (10 sets, daily range): BP systolic 98–138; BP diastolic 62–84; PULSE 70–91; RESP 16; TEMP 36.1–37.1; O2SAT 95–100; BMI 35.8
--- NOTE | 2021-05-25 07:06 | PCM.HP.BLA ---
History and Physical Date of Admission: 05/25/21 Date of Service: 04/26/21 MR#:[id number]:[id number]: MINA YOON Amarilys #:[id number]:[id number] Provider:Dr. Haseeb Elise, DOAge/Sex: 65/M [facility] [place] Int[place] Intake Visit Reasons: RIGHT KNEE Allergies No Known Allergies Allergy (Verified 04/26/21 13:49) Medications aspirin 81 mg tablet,delayed release 81 mg PO DAILY 11/19/19 [History Confirmed 04/26/21] atorvastatin 20 mg tablet 20 mg PO DAILY 11/19/19 [History Confirmed 04/26/21] celecoxib 200 mg capsule 200 mg PO DAILY 11/19/19 [History Confirmed 04/26/21] esomeprazole magnesium 40 mg capsule,delayed release 40 cap PO DAILY 11/19/19 [History Confirmed 04/26/21] gemfibrozil 600 mg tablet 600 mg PO DAILY 11/19/19 [History Confirmed 04/26/21] montelukast 10 mg tablet 10 mg PO DAILY 11/19/19 [History Confirmed 04/26/21] ranolazine 500 mg tablet,extended release,12 hr 500 tab PO BID 11/19/19 [History Confirmed 04/26/21] albuterol sulfate 1 puff INHALATION Q4H PRN PRN 03/17/20 [History Confirmed 04/26/21] ferrous sulfate 325 mg PO DAILY@0800 03/17/20 [History Confirmed 04/26/21] metoprolol succinate 100 mg PO DAILY 03/17/20 [History Confirmed 04/26/21] tiotropium bromide 2 puff INHALATION DAILY 03/17/20 [History Confirmed 04/26/21] cyclobenzaprine 10 mg tablet 10 mg PO TID PRN #30 tab 05/20/20 [Rx Confirmed 04/26/21] buspirone 5 mg tablet 5 mg PO TID PRN tab 04/26/21 [History Confirmed 04/26/21] gabapentin 300 mg capsule 600 mg PO DAILY cap 04/26/21 [History Confirmed 04/26/21] gabapentin 800 mg tablet 800 mg PO QHS tab 04/26/21 [History Confirmed 04/26/21] nitroglycerin 0.4 mg sublingual tablet 0.4 mg SUBLINGUAL DIRECTED tab 04/26/21 [History Confirmed 04/26/21] omega-3 fatty acids 1,000 mg capsule 1,000 mg PO DAILY 04/26/21 [History Confirmed 04/26/21] spironolactone 25 mg tablet 25 mg PO DIRECTED tab 04/26/21 [History Confirmed 04/26/21] [facility] Medical History (Updated 04/26/21 @ 14:[address] Haseeb Elise DO) Allergies Back problem Bone fracture Cataracts, bilateral Hearing problem Heart disease High blood pressure High cholesterol HISTORY OF LEFT LEG SURGERY Surgical History (Updated 03/24/20 @ 07:[address] Haseeb Elise DO) History of back surgery History of left knee surgery History of neck surgery Family History Other High cholesterol Hypertension Social History (Updated 12/25/20 @ 09:[address] Haseeb Elise DO) Smoking Status: Never smoker alcohol intake: never substance use type: does not use additional social history: DOES TAKE ASPIRIN DOES TAKE IBUPROFEN HPI RIGHT KNEE Details: Parts of this documentation were recorded by a scribe, this documentation accurately reflects the service provided and the decisions made by me, Dr. Haseeb Elise, 04/26/21 0751. MINA YOON is a 65 year old M here today to discuss surgery for his right knee. Patient states he was cleared by Dr. Vega to proceed with his knee first before his back gets any work done. On 03/17/21, Patient received an injection and said he only had relief for a few hours. Pain is with his lateral, medial and anterior right knee. Pain will radiate to his thigh, feels like it's broke. Denies numbness, tingling or other associated symptoms. Patient reports he gets night time cramping with his calf. Approx began last month. Patient has been taking Tylenol for pain relief. Patient is currently ambulating with crutches today. Ortho Exam General General: Yes no acute distress and Yes well groomed Neurologic: Yes alert and Yes oriented x3 Psychologic: Yes reasonable and appropriate Right Knee Skin/Wound: No erythema, No ecchymosis and Yes swelling Knee ROM: Yes ROM-Extension -20 to 0 and No ROM-Flexion 0-140 (98) Examination: Yes Med jt line tenderness Stability: NML: Anterior Drawer, NML: Posterior Drawer, NML: Valgus 0 and NML: Valgus 30 Patella Translation: 1 KNEE: no joint effusion, edema bilateral lower extremities right worse than left. No calf tenderness today Left Knee Patella Translation: 1 Coding Level of Care Code Off vis,est,level 3 Diagnoses Primary osteoarthritis of right knee M17.11 Spinal stenosis M48.061 Spinal region: lumbar Neurogenic claudication status: unspecified Assessment and Plan Assessment and Plan (1) Primary osteoarthritis of right knee: Status: Acute (2) Spinal stenosis: Status: Acute Qualifiers: Spinal region: lumbar Neurogenic claudication status: unspecified Qualified Code(s): M48.061 - Spinal stenosis, lumbar region without neurogenic claudication Plan - Dr. Haseeb Elise DO: Personally reviewed the patient's medical history, medications, surgeries and recent exams if available. Advised the numbness and tingling will not subside after surgery. Advised patient he needs to stay compliant with the AUGUSTINE hose post-op to prevent blood clots. Patient cannot take NSAIDs seven days prior and two weeks post-op. Risks, benefits and alternatives of surgery reviewed including risk of bleeding, infection, nerve, artery and/or tissue damage continued pain or symptoms and expected post-operative course. Discussed and reviewed over his right and left knee imaging. Encouraged the bike to keep patient moving. All questions answered. Patient in agreement of plan. Follow up in 2 weeks post op or sooner if pain, swelling, numbness or associated symptoms, or concerns develop. 04/26/21 2421<Electronically signed by Haseeb Elise DO>Date Haseeb Elise DO I have re-examined the patient. There are no clinical changes since date of exam
[2021-05-25] MEDS: Gabapentin 600 MG Tablet PO (08:01)
[2021-05-25] MEDS: Acetaminophen 500 MG Tablet 1000 MG PO ×2 (08:01→14:00)
[2021-05-25] MEDS: Celecoxib 200 MG Capsule 400 MG PO (08:02)
[2021-05-25] MEDS: Lactated Ringers 1,000 ML 100 ML IV (08:02)
[2021-05-25] MEDS: Scopolamine 1mg/72hr Patch 1 PATCH TD (08:02)
[2021-05-25 08:45] LABS: Bedside Glucose 117 mg/dL (70-110)
--- NOTE | 2021-05-25 10:00 | KNEE_PTH ---
PATIENT: MINA YOON LOC: [facility] [place] U#:[id number] AGE/SX: 65/M ROOM: RE05/25/[address]: Dr. Haseeb Elise DO : 1955 BED: DIS: 05/25/2021 SPEC #: [id number] RECD: 05/25/21 13:09 STATUS: DINAH REJonny #: [id number] DEVAN: 05/25/21 10:[address]: Haseeb Elise DEPT: SURGICAL PATHOLOGY RECD BY: Avelina Dobbins ENTERED: 05/25/21 13:24 SP TYPE: TOTAL KNEE OTHR DR: MD Magdalene Temple, FOREST AIDE-C Tissues: Knee, NOS Procedures: Decalcification bone/plaque Surgery Specimen Level IV HEADER OPERATION: ERAS, total knee replacement robotic arm assist PRE-OP DIAGNOSIS: Osteoarthritis right knee TISSUE SUBMITTED: Right knee bone and soft tissue MICROSCOPIC DIAGNOSIS Bone and soft tissue, right knee, total knee replacement/resection: Pieces of bone with degenerative osteoarthritic changes. Fibroadipose tissue, fibroconnective tissue and reactive synovial tissue. Focal changes consistent with pseudogout. JANAE:felix 05/28/2021 MICROSCOPIC DESCRIPTION Slides are reviewed. GROSS DESCRIPTION Received is one container designated bone and soft tissue right knee. The specimen consists of multiple fragments of ellis-yellow bone measuring in aggregate 7 x 7 x 3 cm. Also in the specimen container are multiple fragments of yellow-white soft tissue measuring in aggregate 5 x 3.5 x 2 cm. It predominantly consists of cartilaginous tissue. A number of bony fragments contain articular surfaces consistent with tibial plateau and femoral condyle and displaying prominent osteophyte formation and bone erosion. Office Director sections are submitted in two cassettes as follows: 1 - soft tissue, 2 - bone after decalcification. / JANAE:felix 05/25/21 TC:5 [facility]: [id number], [id number]
[2021-05-25] MEDS: dexAMETHasone 10 MG/ML Vial IV (10:23)
[2021-05-25] MEDS: Bupivacaine Mpf 0.5% 30 ML VIAL (11:48)
[2021-05-25] MEDS: Betamethasone/Betamethasone 30 MG/5 ML Vial (11:48)
[2021-05-25] MEDS: 0.9% Normal Saline (Pres. free 10 ML Vial (11:48)
[2021-05-25] MEDS: Epinephrine (1 mg/ml) 1 MG/ML VIAL (11:48)
[2021-05-25] MEDS: Cefazolin 1 GM/50 ML BAG IV (12:24)
--- NOTE | 2021-05-25 12:27 | OP.PCM_ITS ---
Report of Operation Date of Procedure: 05/25/21 Surgery/Procedure Performed:: Preoperative diagnosis: Right knee DJD Postoperative diagnosis: Same Procedure: Right total knee arthroplasty CT guided Robotic Assisted Implant: [place] triathlon press fit, femoral component size 5, tibial baseplate size 6, asymmetric patella size 38, polyethylene X3 size 10 CS Anesthesia: Spinal with adductor canal block Tourniquet time: 12 minutes at 300 mmHg Complications: None Condition: Stable to PACU Estimated blood loss: 200 cc Indication for procedure: This is a 65-year-old male with long standing degenerative joint disease of the knee who has failed conservative treatment and wished to proceed with elective total knee arthroplasty. Risk benefits and alternatives were reviewed including; risk of bleeding, infection, nerve artery and tissue damage, continued pain, postoperative stiffness, venous thro mboembolism, need for postoperative rehabilitation, mechanical feel to the knee, and expected postoperative course. The operative CT and templating was performed with component sizing Procedure: The patient was met in the preoperative holding area. The operative extremity was identified by both patient and physician and was marked. Patient was met by anesthesia. An adductor canal block was placed by anesthesia postoperatively the patient was brought back to the operating room on a wheeled cart and transferred to the operating table in the supine position. Anesthesia was started. A well-padded tourniquet was placed on the operative extremity. The patient was prepped and draped in the usual sterile fashion. A timeout was called to ensure the proper patient procedure and extremity were being contemplated. An Esmarch was used to exsanguinate the extremity. The tourniquet was inflated. A 10 blade scalpel was used to make a midline incision down through the skin and subcutaneous tissue. Skin retractors placed. Bovie was used to perform meticulous hemostasis. full-thickness flaps were elevated medial and lateral along the joint capsule. A deep blade scalpel was used to pe rform a medial parapatellar arthrotomy. The knee was brought to full extension. A Bovie was used to release the soft tissues off the most proximal aspect of the medial tibial plateau, a three-quarter inch curved osteotome was also used for this process. The infrapatellar fat pad was excised. The superior fat pad was excised partially anteriorolateraly and portion the anterioromedial pad was elevated from the femur. At this point our intra-articular femoral array was placed of a 45 degree angle proximal and posterior to the medial epicondyle. Our tibial array was placed greater than 1 hands breath below the incision at a 20 degree angle stab incisions were used for this case were attached and checked with the robotic software. Tourniquet was let down. At this point registration spaulding were taken throughout the knee as well as checkpoints placed in the femur and tibia once the knee was registered then tensioned the medial and lateral ligaments in extension and 90 degrees of flexion. We then used these numbers to adjust our components within parameters to balance the knee in both flexion and extension once this was done on our monitor we then proceeded with using the robotic arm to make our tibial plateau cut and anterior posterior and chamfer cuts and distal on the femur we then trialed and achieved the desired plan with a well-balanced knee. Lug holes were drilled in the femur the tibia preparation was completed with a fin punch and the patella was prepared by first using a caliper to ensure sufficient bone stock and a patellar reamer to remove the desired amount of bone locals were drilled for an asymmetric poly-. We then brought the knee through range of motion with excellent patellar tracking. We thoroughly irrigated the knee with a trial components were removed a posterior capsular injection with her standard cocktail was performed the aqua Mantis was also used to aid in hemostasis. Betadine rinse was allowed to sit and washed out components were press-fit into place. Aricept rinse was then used followed by several more rate liters of irrigation after it was allowed to sit. Joint capsule was closed with #1 Ethibond [id number] followed by Vicryl in the subcutaneous tissues staple in the skin arrays and checkpoints were removed prior to closure all counts were correct stab incisions were closed with a stable standard dressing in the form of Mepilex for the main incision Xeroform 4 x 4 and Tegaderm over pin site holes. Thigh-high AUGUSTINE hose applied over top of dressing. Patient tolerated the procedure well and was directed to PACU in stable condition no intraoperative complications
--- NOTE | 2021-05-25 12:39 | EX.PCM.DISCH ---
Discharge Instructions Diet Discharge Diet: No restrictions Activity Keep extremity elevated above heart level: Operative Extremity Dressing / Incision Call your doctor if you observe: Shortness of breath and Chest pain Change Dressing in: 3 days Additional Dressing/Incision Instructions:: Ice and elevate one week while not ambulating. Ambulation is encouraged. Weightbearing as tolerated. Use assistive devise for stability. Encourage FULL knee extension and flexion 1 time EVERY time you get up and down and MULTIPLE times per day. No showering 72 hours after surgery. Begin showering postop day #3. Remove the dressing prior to shower and gently wash with warm water and antibacterial soap then pat dry and place abdominal pad (or plain gauze) and AUGUSTINE hose over top. This is to be done daily. Do not submerge for 3 weeks. If not showering daily after the initial 72 hours then you must clean incision and change dressing daily. Do not allow animals near the incision area. Keep clean. Follow anticoagulation recommendations as prescribed. Do not take any NSAIDs while on blood thinner. Do not take any additional narcotic pain medication other than what was prescribed on your surgery day without discussing with physician. Narcotic medication can be addictive. Do not drink alcohol while taking narcotics. Start physical therapy. If you are not currently scheduled for physical therapy or you are unsure of appointment time please call office [facility] to arrange. Call Dr. Elise with any concerns. Follow Up Care Please Follow Up With: Haseeb Elise DO When: 2 weeks Test Results: Test results from this visit will be discussed in further detail at your follow-up appointment, if applicable. Discharge Plan Admission Attending Provider: Haseeb Elise Primary Care Provider: Magdalene Baltazar Consulting Providers: Glenn Monsalve Discharge Orders/Prescriptions Prescriptions: New acetaminophen 500 mg Tablet 1,000 mg PO Q8 Qty: 100 RF: 0 oxycodone 5 mg Tablet 5 - 10 mg PO Q4H PRN PRN (Reason: Pain Score 4-10) 7 Days Qty: 60 RF: 0 cephalexin [cephalexin] 500 MG capsule 1,000 mg PO Q8 Qty: 4 RF: 0 Eliquis 2.5 MG tablet 2.5 mg PO BID Qty: 30 RF: 0 Continued gemfibrozil 600 mg tablet 600 mg PO BID RF: 0 ranolazine 500 mg tablet extended release 12 hr 500 tab PO BID RF: 0 atorvastatin 20 mg tablet 20 mg PO DAILY RF: 0 esomeprazole magnesium 40 mg capsule,delayed release(DR/EC) 40 cap PO BID RF: 0 aspirin 81 mg tablet,delayed release (DR/EC) 81 mg PO DAILY RF: 0 gabapentin 300 mg capsule 600 mg PO DAILY RF: 0 buspirone 5 mg tablet 5 mg PO TID PRN (Reason: Anxiety) RF: 0 gabapentin 800 mg tablet 800 mg PO QHS RF: 0 spironolactone 25 mg tablet 25 mg PO DAILY RF: 0 nitroglycerin 0.4 mg tablet, sublingual 0.4 mg sublingual DIRECTED RF: 0 metoprolol succinate 100 MG tablet 100 mg PO DAILY RF: 0 lisinopril 5 mg Tablet 5 mg PO DAILY RF: 0 Anoro Ellipta 62.5-25 mcg/actuation Blister With Device 1 inh INHALATION DAILY RF: 0 ferrous sulfate 325 mg (65 mg iron) Tablet 325 mg PO DAILY RF: 0 Discontinued trazodone 50 mg Tablet 50 mg PO QHS RF: 0 meloxicam 15 mg Tablet 15 mg PO DAILY RF: 0 Referrals / Follow Up: Magdalene Baltazar, ADMINISTRATIVE SUPPORT CLERK-C [Primary Care Provider] - Disposition Disposition (needs filled in before D/C Order can be placed): Home, Self Care
--- NOTE | 2021-05-25 12:45 | RAD_ITS ---
STUDY: X-RAY - RIGHT KNEE REASON FOR EXAM: Male, 65 years old. New right total knee arthroplasty. TECHNIQUE: 2 view(s) of the knee. COMPARISON: None. FINDINGS: There is a 3 component total knee arthroplasty in anatomic position. There are expected post-operative findings. There are no complications. No other significant abnormality is identified. RAD/Knee 1 or 2 Views IMPRESSION: Total knee arthroplasty in anatomic alignment without complications. Electronically Signed: Ortiz Angela MD at 13:46 EDT , Service support ,
[2021-05-25] MEDS: Lactated Ringers 1,000 ML 125 ML IV (12:55)
[2021-05-25] MEDS: oxyCODONE 5 MG Tablet PO (15:01)
== END 2021-05-25 17:36 | disposition home or self-care (01) ==
LOC: SDC 06:55 → AC 06:56
PROVIDERS: Anesthesiology; PCP Nurse Practitioner Family; Referring Provider Orthopaedic Surgery; Visit Provider Orthopaedic Surgery
PROC: 0SRC0JZ Replacement of Right Knee Joint with Synthetic Substitute, Open Approach (ICD-10-PCS; CPT 27447; principal; 2021-05-25 09:30)
DX: M17.11 Unilateral primary osteoarthritis, right knee (principal); F41.9 Anxiety disorder, unspecified; J44.9 Chronic obstructive pulmonary disease, unspecified; K21.9 Gastro-esophageal reflux disease without esophagitis; E78.00 Pure hypercholesterolemia, unspecified; I10 Essential (primary) hypertension; I51.9 Heart disease, unspecified; Z79.899 Other long term (current) drug therapy; Z79.82 Long term (current) use of aspirin; M48.062 Spinal stenosis, lumbar region with neurogenic claudication
CPT/HCPCS: 01402; 27447; 64447; S2900; 73560; 80048; 82962; 82985; 83735; 85025; 85610; 85730; 86850; 86900; 86901; 87081; 87426; 88305; 88311; 93005; 97161; C1776; C9803; J7120; J0702; J3490

== ENCOUNTER 2023-02-15 05:20 | Day surgery (SDC) | payer MEDICARE, SELFPAY ==
--- NOTE | 2023-02-09 07:50 | EKG12_ITS ---
Test Reason : PRE OP Blood Pressure : / mmHG Vent. Rate : 066 BPM Atrial Rate : 066 BPM P-R Int : 140 ms QRS Dur : 106 ms QT Int : 402 ms P-R-T Axes : 065 041 026 degrees QTc Int : 421 ms Normal sinus rhythm Normal ECG Confirmed by JAMES HAHN, BRIE ([id number]), news assignment editor ANGELITO ACUÑA ([id number]) on 02/09/2023 1:56:27 PM Referred By: Leonid Melendez Confirmed By:BRIE RAMIREZ MD
[2023-02-09 07:52] LABS: Hematocrit 44.5 % (40-54); Hemoglobin 14.2 g/dL (13.0-16.5); Mean Corp Hgb Conc 31.9 g/dL (32-36); Mean Corpuscular Hgb 28.7 pg (27.0-32.0); Mean Corpuscular Volume 90.1 fL (80-94); Mean Platelet Vol. 10.1 fl (6.2-12.0); Platelet Count 179 K/mm3 (150-450); RBC Distribution Width CV 13.7 % (11.6-14.6); Red Blood Count 4.94 M/mm3 (4.6-6.2); White Blood Count 5.4 K/mm3 (4.4-11.0)
[2023-02-09 08:19] LABS: AST(SGOT) 26 U/L (15-37); Alanine Aminotransfer ALT/SGPT 31 U/L (16-61); Albumin, Serum 3.3 g/dL (3.2-5.0); Alkaline Phosphatase 88 U/L (45-117); Anion Gap 5 (5-15); BUN 20 mg/dL (7-18); BUN/Creat Ratio 21.4 RATIO (10-20); Bilirubin, Direct 0.14 mg/dL (0.00-0.30); Chloride 109 mmol/L (98-107); Creatinine, Serum 0.93 mg/dL (0.70-1.30); EST Glomerular Filtration Rate 86 mL/min (>60); Est Glom Filt Rate - Afr Amer 104 mL/min (>60); Globulin 3.3 g/dL (2.2-4.2); Glucose 109 mg/dL (74-106); Potassium 4.5 mmol/L (3.5-5.1); Protein, Total 6.6 g/dL (6.4-8.2); Sodium Level 141 mmol/L (136-145)
[2023-02-09 08:35] LABS: International Normalized Ratio 1.1; Prothrombin Time (Protime)PT. 13.9 SECONDS (11.7-14.9)
[2023-02-09 08:36] LABS: Partial Thromboplast Time 33.7 Seconds (24.1-36.2)
[2023-02-15] VITALS (9 sets, daily range): BP systolic 101–131; BP diastolic 54–83; PULSE 65–92; RESP 16–18; TEMP 35.5–36.1; O2SAT 92–96; BMI 31.8
[2023-02-15] MEDS: Lactated Ringers 1,000 ML 15 ML IV (06:07)
--- NOTE | 2023-02-15 07:09 | PCM.HP.STD ---
HPI - General HPI Narrative MINA YOON is a 67 M who presents for right shoulder arthroscopy, RCR, possible cuff mend, biceps tenotomy, SAD. OK to proceed. no changes to h and p. right shoulder marked. narcotic counselling. RAB discussed. plan for block. MR#: [id number] Acct: [id number] Name:MINA BARNES Rep #: [id number] : 1955 ? ? Provider: Dr. Leonid Melendez MD Age/Sex:? 67/M ? ? Location: [facility] [place] Status: Signed Intake Intake Visit Reasons:?RIGHT SHOULDER Chief Complaint: right shoulder pain Is patient in pain?: Yes (right shoulder) Pain scale (1-10): 3 Allergies No Known Allergies Allergy (Verified 01/20/23 09:52) Medications atorvastatin 20 mg tablet 20 mg PO DAILY cholesterol 11/19/19 [History Confirmed 01/20/23] esomeprazole magnesium 40 mg capsule,delayed release 40 cap PO BID 11/19/19 [History Confirmed 01/20/23] ranolazine 500 mg tablet,extended release,12 hr 500 tab PO BID angina 11/19/19 [History Confirmed 01/20/23] metoprolol succinate 100 mg tablet,extended release 24 hr 100 mg PO DAILY bp 03/17/20 [History Confirmed 01/20/23] buspirone 5 mg tablet 5 mg PO TID PRN Anxiety 04/26/21 [History Confirmed 01/20/23] gabapentin 800 mg tablet 800 mg PO QHS nerve pain 04/26/21 [History Confirmed 01/20/23] nitroglycerin 0.4 mg sublingual tablet 0.4 mg sublingual DIRECTED 04/26/21 [History Confirmed 01/20/23] spironolactone 25 mg tablet 25 mg PO DAILY bp 04/26/21 [History Confirmed 01/20/23] ferrous sulfate 325 mg (65 mg iron) tablet 325 mg PO DAILY supplement 05/11/21 [History Confirmed 01/20/23] lisinopril 5 mg tablet 5 mg PO DAILY bp 05/11/21 [History Confirmed 01/20/23] umeclidinium 62.5 mcg-vilanterol 25 mcg/actuation powdr for inhalation (Anoro Ellipta) 1 inh inhalation DAILY breathing 05/11/21 [History Confirmed 01/20/23] acetaminophen 500 mg tablet 1,000 mg PO Q8 #100 tabs 05/25/21 [Rx Confirmed 01/20/23] PFSH Medical History? Allergies Ambulates with cane Anxiety Arthritis Back problem Bone fracture Cardiology follow-up encounter Cataracts, bilateral COPD (chronic obstructive pulmonary disease) Former smoker Gastric reflux Hearing problem Heart disease High blood pressure High cholesterol History of edema HISTORY OF LEFT LEG SURGERY History of stress test History of ulceration Leg cramps Low iron Wears dentures Surgical History? History of back surgery History of bilateral cataract extraction History of coronary artery stent placement History of left knee surgery History of neck surgery Family History? Other High cholesterol Hypertension Social History? Smoking Status:? Never smoker alcohol intake:? never substance use type:? does not use additional social history:? DOES TAKE ASPIRIN DOES TAKE IBUPROFEN HPI RIGHT SHOULDER Details: Parts of this documentation were recorded by a scribe, this documentation accurately reflects the service provided and the decisions made by me, Dr. Leonid Melendez MD 01/20/23 [id number]. MINA YOON is a 67 year old M here today for? FU right shoulder pain, weakness, full ROM and massive cuff tear, mild OA.? Still having pain in the shoulder.? Difficulty holding up a hammer.? Is more interested in having the shoulder addressed rather than the neck he saw Dr. Vega already for this. Ortho Exam General General: Yes no acute distress Neurologic: Yes alert and Yes oriented x3 Psychologic: Yes reasonable and appropriate Right Shoulder Skin/Wound: Yes CDI, No ecchymosis, No erythema and No swelling Testing: Positive Hawkin's, Neer's, Speed's, TTP Biceps and empty can; Negative Drop Arm, Apprehension Test or translation SHOULDER: Active forward elevation 170 external rotation passively to about 50 degrees but he has a 10 degree lag sign.? External rotation strength quite weak 4 -/5 forward elevation strength again week 4 -/5.? Normal sensation motor function C5-T1. Supplemental Info 01/04/2023 x-ray cervical spine: There is a fusion of the 5 6 vertebrae there is advanced degenerative disc disease throughout 01/04/2023 x-ray right shoulder: There is mild inferior spurring of the glenoid preserved glenohumeral joint space 12/28/2022 MRI right shoulder on disc from: Massive full-thickness full width rotator cuff tear involving the entirety of the supraspinatus and infraspinatus tendon.? There is retraction.? There is diffuse edematous thickening of the retracted stump indicating tendinosis.? There is also diffuse thickening and increased intrasubstance signal of the subscapularis tendon suggestive of moderate tendinosis there is severe fatty atrophy of the teres minor muscle no evidence of space-occupying lesion in the quadrangular space or axillary nerve compression.? There is diffuse edema in the subscapularis muscle there is increased signal and thickening long head biceps tendon suggestive of mild tendinosis.? Moderate degenerative change of the AC joint with inferior osteophytes mild degenerative changes of the glenohumeral joint with marginal osteophytes joint effusion.? Synovitis.? Synovial ossified body measuring 1.3 x 0.7 cm in the subscapular recess. Coding Level of Care Code Off vis,est,level 4 Diagnoses Rotator cuff tear, right? M75.101 Assessment and Plan Assessment and Plan (1) Rotator cuff tear, right: ?Status:?Acute ?Plan: MINA YOON is a 67 year old M here today for? FU right shoulder pain, weakness, full ROM and massive cuff tear, mild OA. Thank in the stiffer nonoperative means of treating this problem continued rest ice anti-inflammatories activity modifications physical therapy and injections.? Possible surgical options include limited goals type arthroscopy procedure attempted repair biceps tenotomy to try to address his pain versus going right to a reverse total shoulder arthroplasty he has minimal glenohumeral joint space narrowing as well as good full forward elevation and simply weakness I think it is reasonable to try smaller less risky surgery to try to help him with his pain despite the only moderate chance of having this heal.? He wishes to go ahead with this I have consented and booked him for right shoulder arthroscopy, rotator cuff repair, possible allograft tissue, biceps tenotomy, subacromial decompression. ?We will get a preoperative clearance.? He understands no further questions or concerns we discussed the recovery 2 to 3 weeks in a sling and 3 months of physical therapy as well. Pros and cons risks and benefits were discussed with the patient including but not limited to infection, pain, stiffness, bleeding, damage to surrounding structures, neurovascular injury, recurrence or retear, failure or wear of hardware or fixation, instability, fracture, deep vein thrombosis and pulmonary embolism, anesthetic risks, , patient dissatisfaction, need for further surgery and other risks.? Patient understood and wished to proceed with surgery, and signed the informed consent documentation. [facility] Medical History Allergies Ambulates with cane Anxiety Arthritis Back problem Bone fracture Cardiology follow-up encounter Cataracts, bilateral COPD (chronic obstructive pulmonary disease) Easy bruising Former smoker Gastric reflux GERD (gastroesophageal reflux disease) Hearing problem Heart disease High blood pressure High cholesterol History of edema HISTORY OF LEFT LEG SURGERY History of stress test History of ulceration Leg cramps Loss of hearing Low iron Wears dentures Wears glasses Home Medications atorvastatin 20 mg tablet 20 mg PO DAILY cholesterol 11/19/19 [History Last Taken Unknown] esomeprazole magnesium 40 mg capsule,delayed release 40 cap PO BID 11/19/19 [History Last Taken 02/15/23] ranolazine 500 mg tablet,extended release,12 hr 500 tab PO BID angina 11/19/19 [History Last Taken 05/25/21 05:00 500 TAB] metoprolol succinate 100 mg tablet,extended release 24 hr 100 mg PO DAILY bp 03/17/20 [History Last Taken 05/25/21 05:00 100 MG] gabapentin 800 mg tablet 800 mg PO TID nerve pain 04/26/21 [History Last Taken 02/15/23] ferrous sulfate 325 mg (65 mg iron) tablet 325 mg PO DAILY supplement 05/11/21 [History Last Taken Unknown] aspirin 81 mg capsule 81 mg PO DAILY 02/08/23 [History Last Taken 02/06/23] gemfibrozil 600 mg tablet 600 mg PO DAILY 02/08/23 [History Last Taken Unknown] meloxicam 15 mg tablet 15 mg PO DAILY 02/08/23 [History Last Taken Unknown] montelukast 10 mg tablet 10 mg PO DAILY 02/08/23 [History Last Taken Unknown] Allergy/AdvReac Type Severity Reaction Status Date / Time No Known Allergies Allergy Verified 02/15/23 06:02 Family History Other High cholesterol Hypertension Surgical History History of back surgery History of bilateral cataract extraction History of cardiac catheterization History of coronary artery stent placement History of left knee surgery History of neck surgery Social History Smoking Status: Former smoker alcohol intake: never substance use type: does not use additional social history: DOES TAKE ASPIRIN DOES TAKE IBUPROFEN Vital Signs Vital Signs Vital Signs: 02/15/23 06:01 02/15/23 06:01 Temperature 97.0 F L Temperature Source Temporal Pulse Rate 70 Respiratory Rate 18 Respiratory Pattern Normal Blood Pressure 130/83 H Blood Pressure Mean 98 Blood Pressure Source Monitor Blood Pressure Position Semi-Fowlers Blood Pressure Location Left Arm Pulse Ox 96 Oxygen Delivery Method Room Air Weight Weight: 209 lb 7.026 oz Body Mass Index (BMI) 31.8 Results Lab / Micro Data Result Diagrams: 02/09/23 07:36 02/09/23 07:36
[2023-02-15] MEDS: Cefazolin 2 GM in 0.9% Normal Saline 100 ML IV (07:25)
[2023-02-15] MEDS: Epinephrine (1 mg/ml) 1 MG/ML VIAL (07:59)
--- NOTE | 2023-02-15 09:19 | EX.PCM.DISCH ---
Discharge Instructions Diet Discharge Diet: No restrictions Activity Ice area for (Minutes): 10 Lifting Restrictions: pendulums four times a day, hand wrist elbow ROM as tolerated Dressing / Incision Call your doctor if your incision/area has: Continuous Slow Oozing, Sudden Increased Bleeding, Increased Pain/ Swelling, Increased Redness, Foul Smelling Discharge and Swelling at the incision site Remove Dressing in: do not remove dressing Follow Up Care Please Follow Up With: Leonid Melendez MD When: 2 days Test Results: Test results from this visit will be discussed in further detail at your follow-up appointment, if applicable. Discharge Plan Admission Attending Provider: Leonid Melendez Primary Care Provider: Magdalene Baltazar Discharge Orders/Prescriptions Prescriptions: New oxycodone-acetaminophen [Endocet] 5-325 mg tablet 1 tab PO Q4H MDD 6 PRN (Reason: pain) 6 Days Qty: 30 0RF No Action ranolazine 500 mg tablet extended release 12 hr 500 tab PO BID atorvastatin 20 mg tablet 20 mg PO DAILY Label Comments: TAKE 1 TABLET BY MOUTH EVERY DAY esomeprazole magnesium 40 mg capsule,delayed release(DR/EC) 40 cap PO BID gabapentin 800 mg tablet 800 mg PO TID metoprolol succinate 100 MG tablet 100 mg PO DAILY ferrous sulfate 325 mg (65 mg iron) Tablet 325 mg PO DAILY meloxicam 15 mg tablet 15 mg PO DAILY Label Comments: TAKE 1 TABLET BY MOUTH EVERY DAY montelukast 10 mg tablet 10 mg PO DAILY aspirin 81 mg Capsule 81 mg PO DAILY gemfibrozil 600 mg tablet 600 mg PO DAILY Label Comments: TAKE 1 TABLET BY MOUTH TWICE DAILY Other Ambulatory Orders: 12 Lead EKG (Routine) Timeframe: [id number] Location: None Selected Ordered By: Dr. Federico Sims Referrals / Follow Up: Leonid Melendez MD [Med Staff - Active Staff] - Magdalene Baltazar, [employer] [Primary Care Provider] - Disposition Disposition (needs filled in before D/C Order can be placed): Home, Self Care
--- NOTE | 2023-02-15 09:23 | OP.PCM_ITS ---
Problems Associated Problem List Diagnoses (1) Rotator cuff tear, right: (2) Right shoulder pain: Report of Operation Date of Procedure: 02/15/23 Pre-Operative Diagnosis: right shoulder rotator cuff tear and biceps tendonitis Post-Operative Diagnosis: same Surgery/Procedure Performed:: right shoulder arthroscopy, subacromial decompression, debridement, biceps tenotomy, allograft cuffmend patch Surgeon: Leonid Melendez Type of Anesthesia: Block,Regional and General Anesthesiologist: Federico Sims Estimated Blood Loss (mL): 100 Description of Procedure: Patient brought to OR room theater. Placed supine on the table. General anesthesia induced. Preoperative block was given. Patient transferred right side up lateral decubitus with the aid of the beanbag positioner. Axillary roll used SCDs on the legs. All bony prominences appropriately padded. Upper extremity prepped and draped in usual sterile fashion with correction based prep solution lying over 3 minutes drying time prior to draping. 2 g IV Ancef administered prior to start of procedure. 10 pounds in line traction with the arm in 45 degrees abduction was used. Preoperative timeout performed to confirm the site patient and the surgery. Began by inserting the arthroscope into the intra-articular portion of the carl ulder. Did a standard diagnostic arthroscopy. Cartilage on the glenoid and humeral head very mild grade 1 changes both sides. No loose bodies. Moderate fraying of the circumferential aspect of the labrum gently debrided. Longitudinal tearing and fraying of the biceps therefore elected to perform a biceps tenotomy. Subscapularis fraying partial upper border tearing debrided. Teres minor appeared to be intact and there was a full-thickness rotator cuff tear of the supraspinatus with retraction past medial to the glenoid. Cleaned up the free edge of this. Used inside out spinal needle localization to perform a anterior accessory portal through the rotator interval as well as a 2 lateral portals which I placed passport cannulas. Try to mobilize the remainder stump of the rotator cuff tendon of the supraspinatus but this was fixed atrophied and immobile. Therefore elected to place the patch at the greater tuberosity to perform tuberoplasty. Cleared away in any soft tissue at the remaining rotator cuff insertion. Used the Arthrex power pick instrument to create a number of trephination's at the greater tuberosity for healing. Measured this to be approximately 2 cm from medial to lateral and 2 cm from anterior to posterior cut the graft in this manner using the Arthrex cuff mend dermal acellular allograft. I inserted 2 luggage tag fiber tag sutures at the lateral aspect keeping the graft in an appropriate superior to inferior direction for appropriate healing. Then inserted 2 knotless 4.75 mm Arthrex swivel lock anchors at the tuberosity to cartilage junction on the humeral head. Passed the repair sutures at the medial side of the graft then passed this suture through the working suture to pass this back through the anchor itself, knotless technique. Use sequential tightening to deliver shuttlintg the graft into the shoulder at the greater tuberosity medial margin. I then used the previously inserted sutures to then passed into 3.5 mm self punching bio Composite push lock anchors, for 4 anchors total. Placed these at the lateral aspect of the greater tuberosity to secure the patch down in place at the greater tuberosity. Cut the sutures short arthroscopy pictures taken and saved onto the system. Subacromial decompression performed for 3 mm for slight downsloping of the anterolateral acromion as well as a complete bursectomy. Case terminated arthroscope withdrawn. Skin cleaned with wet and dry dressing portals closed with 3-0 Monocryl suture followed by Steri-Strips Adaptic 4 x 4 gauze ABD and cloth tape with a sling for the upper extremity. Patient woken up general anesthetic transferred off the operating table and taken to postanesthetic care unit in stable condition. All sponge needle instrument counts were correct no complications. Complications none Admit VTE Documentation VTE Present on Admission: No VTE Mechan Device Prophylaxis: SCD's Reason prophylaxis not ordered:: Treatment Not Indicated Procedures Musculoskeletal [id number]: Other Procedure See Report
== END 2023-02-15 12:00 | disposition home or self-care (01) ==
LOC: SDC 05:20 → AC 05:21
PROVIDERS: Anesthesiology; PCP Nurse Practitioner Family; Referring Provider Orthopaedic Surgery Sports Medicine; Visit Provider Orthopaedic Surgery Sports Medicine
PROC: (CPT 29805; principal; 2023-02-15 07:10)
DX: M75.121 Complete rotator cuff tear or rupture of right shoulder, not specified as traumatic (principal); M75.21 Bicipital tendinitis, right shoulder; K21.9 Gastro-esophageal reflux disease without esophagitis; I10 Essential (primary) hypertension; E78.00 Pure hypercholesterolemia, unspecified; Z95.5 Presence of coronary angioplasty implant and graft; Z79.899 Other long term (current) drug therapy; Z79.82 Long term (current) use of aspirin; Z87.891 Personal history of nicotine dependence
CPT/HCPCS: 29827; 64415; 01630; 36415; 80048; 80076; 85027; 85610; 85730; 93005; C1713; J7120; J2405

== ENCOUNTER → 2023-05-08 | Outpatient (CLI) | payer MEDICARE, SELFPAY ==
--- NOTE | 2023-05-08 14:25 | RAD_ITS ---
STUDY: X-RAY - LUMBAR SPINE REASON FOR EXAM: Male, 67 years old. Pain. TECHNIQUE: 2 view(s) of the lumbar spine were obtained. COMPARISON: None FINDINGS: Osteopenia. Normal lumbar lordosis. Mild dextroscoliosis. Anterolisthesis of L4 on L5 of 9 mm. Posterior fusion from L4 to S1 with intervertebral disc prostheses at L4-5 and L5-S1. Diffuse lower thoracic and lumbosacral facet sclerosis. Diffuse intervertebral disc space narrowing with osteophyte formation most marked in the lower thoracic spine. Vascular calcification. RAD/Lumbar Spine 2 or 3 Views IMPRESSION: Osteopenia with postfusion changes from L4 to S1 and diffuse mild thoracic and lumbosacral spondylosis as described. No acute abnormality or erosive changes. Electronically Signed: Ortiz Angela MD at 10:27 EDT ,
--- NOTE | 2023-05-08 14:25 | RAD_ITS ---
STUDY: X-RAY - CERVICAL SPINE REASON FOR EXAM: Male, 67 years old. Chronic neck pain. TECHNIQUE: 3 view(s) of the cervical spine were obtained. COMPARISON: Comparison is made with prior study January 04, 2023. FINDINGS: There are degenerative changes of the anterior atlantoaxial articulation. Normal odontoid process. Normal cervical lordosis. There is multi-level endplate spondylosis. There is multi-level degenerative disc disease with multilevel disc space narrowing. Fusion at the C5-C6 level. Normal visualized intervertebral neuroforamina. There are atherosclerotic vascular calcifications of the carotid arteries. RAD/Cerv Spine 2 or 3 Views IMPRESSION: Multilevel disc space narrowing and spondylosis. Stable examination. Electronically Signed: Aris Mullen MD at 8:53 EDT ,
== END | disposition home or self-care (01) ==
LOC: RAD 14:14
PROVIDERS: PCP Nurse Practitioner Family; Referring Provider Anesthesiology Pain Medicine; Visit Provider Anesthesiology Pain Medicine
DX: M50.30 Other cervical disc degeneration, unspecified cervical region (principal); M96.1 Postlaminectomy syndrome, not elsewhere classified
CPT/HCPCS: 72040; 72100

== ENCOUNTER → 2023-08-16 | Outpatient (CLI) | payer MEDICARE, SELFPAY ==
[2023-08-16 11:16] LABS: Amphetamine Urine VISTA NEGATIVE (<1000 ng/mL); Barbiturate Urine VISTA NEGATIVE (< 200 ng/mL); Benzodiazepine Urine VISTA NEGATIVE (< 200 ng/mL); Cocaine Urine VISTA NEGATIVE (< 300 ng/mL); Ecstacy Urine VISTA NEGATIVE (< 500 ng/mL); Methadone Urine VISTA NEGATIVE (< 300 ng/mL); PCP Urine VISTA NEGATIVE (< 25 ng/mL); THC Urine VISTA NEGATIVE (< 50 ng/mL); Vista UDS pH Range 6
== END | disposition home or self-care (01) ==
PROVIDERS: PCP Nurse Practitioner Family; Referring Provider Anesthesiology Pain Medicine; Visit Provider Anesthesiology Pain Medicine
DX: F11.20 Opioid dependence, uncomplicated (principal)
CPT/HCPCS: 80307